=== PATIENT | male | born 2000 | race Caucasian/White ===

== ENCOUNTER 2022-03-08 20:17 | Emergency (ER) | payer OTHER, SELFPAY ==
[2022-03-08 20:18] VITALS: BP 142/80; PULSE 93; RESP 15; TEMP 37.1; O2SAT 98; BMI 35.5
--- NOTE | 2022-03-08 20:34 | CT_ITS ---
STUDY: CT SOFT TISSUE NECK WITH CONTRAST ENHANCEMENT OF 2101 HOURS ON 03/08/2022 REASON FOR EXAM: 21-year-old male with throat pain. Evaluate for peritonsillar abscess. RADIATION DOSAGE (If Supplied By Facility): CTDIvol = ( 19.32 ) mGy, DLP = ( 617.95 ) mGycm TECHNIQUE: The patient was scanned in a multi-detector CT scanner. High resolution transaxial imaging was performed following intravenous administration of IV 75mL [id number]-[id number]. Sagittal and coronal images were reconstructed. Individualized dose optimization techniques were used for this CT. COMPARISON: None. FINDINGS: Moderate enlargement of both tonsils (greater on the left). There are edematous changes in the left tonsil with an area of least attenuation measuring 1.2 cm in diameter that may represent a developing abscess. This abscess is not serous enough to be aspirated. No neck lymphadenopathy. Mild enlargement of the adenoids. Normal salivary glands. Normal vascular structures of the neck. Normal osseous structures without evidence of an osteomyelitis or periostitis. CT/Soft Tissue Neck WITH Contrast IMPRESSION: 1. Moderate enlargement of both tonsils, greater on the left. 2. Edematous changes of the left tonsil area (represented as decreased attenuation), measuring 1.2 cm in diameter, that probably represents a developing abscess. This abscess is not serous enough to be aspirated. 3. Mild enlargement of the adenoids. 4. Normal salivary glands. 5. No lymphadenopathy. 6. Normal vascular structures of the neck. 7. Normal osseous structures without evidence of an osteomyelitis or periostitis. Electronically Signed: Junaid Ruiz MD at 22:32 EDT ,
--- NOTE | 2022-03-08 20:38 | EX.ED.VIS.UR ---
HPI HPI - URI History of Present Illness Chief Complaint: Other, Pain/Inj Informant: patient Onset/Context/Timing Onset: Days Context: Gradual Onset Timing: Continuous Current Severity: Moderate Maximum Severity: Moderate Worsened by: Swallowing Narrative Narrative: 21-year-old male past medical history of depression. States that he has had a sore throat is progressively worsened for the last 4 days to the point remains very difficult to swallow. He is able to swallow fluids. He has had decreased p.o. intake. Denies any swelling of the lymph nodes in his axilla or groin. He does have lymphadenopathy in his neck. Today went to urgent care they were concerned he might have a peritonsillar abscess and sent in the emergency department. Prior similar symptoms: No Recent Illness/Hospitalization: No ROS ROS ED ROS Narrative Sore throat. Review of Systems ROS Unobtainable: Denies due to encephalopathy Constitutional Constitutional ED: Denies fever(s) Eyes Eyes: Denies change in vision ENT ENT ED: Denies ear pain Cardiovascular Cardiovascular: Denies chest pain Respiratory/Chest Respiratory/Chest: Denies dyspnea Gastrointestinal Gastrointestinal: Denies abdominal pain, diarrhea, nausea or vomiting Genitourinary Genitourinary ED: Denies dysuria Musculoskeletal Musculoskeletal: Denies myalgias Integumentary Denies rash Neurologic Neurologic: Denies headache(s) Psychiatric Psychiatric: Denies depression Endocrine Endocrinology: Denies polyuria Hematologic/Lymphatic Hematologic/Lymphatic: Denies easy bruising Allergic/Immunologic Allergic/Immunologic ED: Denies urticaria PFSH PFSH Medical History Anxiety Depression Non-smoker Home Medications amoxicillin-pot clavulanate 1 tab PO BID 10 Days #20 tab 03/08/22 [Rx Last Taken Unknown] hydrocodone-acetaminophen 1 tab PO Q4H PRN 4 Days #14 tab 03/08/22 [Rx Last Taken Unknown] sertraline 50 mg PO DAILY 03/08/22 [History Last Taken Unknown] Allergy/AdvReac Type Severity Reaction Status Date / Time No Known Allergies Allergy Verified 03/08/22 20:21 Social History Smoking Status: Never smoker EXAM Physical Exam Narrative Exam Narrative: 21-year-old male vital signs stable afebrile. Pulse ox 98% on room air no signs hypoxia. H EENT exam TMs normal bilaterally. Posterior pharynx significantly swollen. Both the soft palate and both tonsils. Exudate on the left. Left appears to be more swollen than the right this may be consistent with a peritonsillar abscess. He is able to swallow his own secretions but its quite painful. Neck has bilateral anterior lymphadenopathy. Trachea midline. Lungs clear to auscultation. Heart regular rhythm rate about 90 no murmur. Abdomen soft nontender. There is no axillary or inguinal lymphadenopathy. Skin no rash. Moving all 4 extremities. Neurologically is awake and alert. Const Vital Signs: 03/08/22 20:18 03/08/22 20:25 Temperature 98.8 F Temperature Source Temporal Pulse Rate 93 Respiratory Rate 15 Respiratory Effort Normal Respiratory Pattern Normal Blood Pressure 142/80 H Blood Pressure Mean 100 Pulse Ox 98 Oxygen Delivery Method Room Air Positive well nourished, well developed and obese; Negative for cachectic or contractures General Appearance ED: well developed and NAD; Negative for cachectic, contractures, cyanotic, diaphoretic or pallor Nutritional Appearance: obese; Negative for cachectic HEENT Reports TM's clear and dry mucous membranes normocephalic External Ear: external ears normal External Auditory Canal: EAC's normal Tympanic Membrane ED: Yes TM's clear Mouth ED: Yes dry mucous membranes Mouth: dry mucous membranes Teeth and Gingiva: Negative for caries Throat: tonsils abnormal and posterior oropharynx abnormal; Negative for posterior oropharynx normal Eyes PERRL and EOMs intact bilaterally General Eye ED: Negative for pale conjunctiva or scleral icterus Neck No no lymphadenopathy, supple, no meningeal signs and no JVD General: anterior neck swelling and lymphadenopathy Resp normal respiratory effort and clear to auscultation bilaterally Auscultation: Negative for rales, rhonchi or wheezes Cardio S1 normal heart sound, S2 normal heart sound and no murmurs Rate: regular rate Rhythm: regular rhythm GI non-tender, non-distended and no masses Inspection: Negative for abdominal distention Auscultation: normoactive bowel sounds Palpation: soft; Negative for tender or guarding Back/Spine no CVA tenderness; Negative for normal ROM Extremity normal to inspection and full ROM General Extremety ED: Negative for cyanosis or tenderness General Extremity: Negative for cyanosis Neuro oriented x3 Sensorium / Orientation: alert, oriented to person, oriented to place and oriented to time; Negative for orientation impaired, lethargic or stuporous Motor Exam: strength 5/5 throughout Psych mental status grossly normal Attitude: No agitated Mood & Affect: Negative for depressed, anxious or tearful Skin General Skin Exam: Negative for jaundice or pallor Lesions: no lesions Rashes: no rashes MDM MDM MDM Narrative Medical decision making narrative: 21-year-old male has sore throat with lymphadenopathy that may be secondary strep Vo[place] or possible peritonsillar abscess. CAT scan labs being obtained. Treated with IV fluids. Treated with Toradol and morphine for pain Zofran. Started on IV Unasyn for the sore throat. Repeat exam patient is doing much better. Pain is much improved after the medication. He is received a dose of IV Unasyn. Also received a dose of IV Decadron. I spoke to ear nose and throat Dr. Moody Valencia. We discussed peritonsillar abscess he will see the patient in his office tomorrow. Will be placed on Augmentin twice daily. [place] for pain. And follow-up in the office tomorrow. Lab Data Attestation: I reviewed the patient's lab results. Lab results narrative: CBC shows a white count 11.1. H&H 14 and 45. Platelets 270. Electrolytes show potassium of 3.3 gap of 5 normal BUN and creatinine. Glucose of 93. Rapid strep is negative. CAT scan has soft tissue swelling much more so on the left tonsillar bed and soft palate that is consistent with a peritonsillar abscess. Awaiting formal radiology interpretation. Radiologist agrees. Labs: Laboratory Results - last 24 hr 03/08/22 03/08/22 20:50 20:50 WBC 11.1 H RBC 5.24 Hgb 14.8 Hct 45.3 MCV 86.5 MCH 28.2 MCHC 32.7 RDW Std Deviation 39.2 RDW Coeff of [place] 12.3 Plt Count 270 MPV 10.9 Immature Gran % (Auto) 0.500 Neut % (Auto) 75.7 H Lymph % (Auto) 13.5 L [place] % (Auto) 9.2 Eos % (Auto) 0.8 Baso % (Auto) 0.3 Absolute Neuts (auto) 8.4 H Absolute Lymphs (auto) 1.50 Nucleated RBC % 0 Sodium 138 Potassium 3.3 L Chloride 103 Carbon Dioxide 30.0 Anion Gap 5 BUN 6 L Creatinine 0.78 Estim Creat Clear Calc 169.30 Est GFR (MDRD) Af Amer 161 Est GFR (MDRD) Non-Af 133 BUN/Creatinine Ratio 7.7 L Glucose 93 Calcium 9.5 Radiography Diagnostic Testing: Clinical Impression(s) from Imaging Studies Soft Tissue Neck CT 03/08/22 20:34 IMPRESSION: 1. Moderate enlargement of both tonsils, greater on the left. 2. Edematous changes of the left tonsil area (represented as decreased attenuation), measuring 1.2 cm in diameter, that probably represents a developing abscess. This abscess is not serous enough to be aspirated. 3. Mild enlargement of the adenoids. 4. Normal salivary glands. 5. No lymphadenopathy. 6. Normal vascular structures of the neck. 7. Normal osseous structures without evidence of an osteomyelitis or periostitis. Electronically Signed: Junaid Ruiz MD at 22:32 EDT , Discharge Plan Triage Chief Complaint: Other, Pain/Inj ED Provider: Timmy Martines Dx/Rx/DC Orders Clinical Impression: Abscess, peritonsillar Instructions: ED Peritonsillar Abscess Prescriptions: New amoxicillin-pot clavulanate 875-125 mg tablet 1 tab PO BID 10 Days Qty: 20 RF: 0 hydrocodone-acetaminophen 5-325 mg tablet 1 tab PO Q4H PRN (Reason: pain) 4 Days Qty: 14 RF: 0 No Action sertraline 50 mg tablet 50 mg PO DAILY RF: 0 Primary Care Provider: Phil Burks Referrals: Marco Pandya MD [STAFF PHYSICIAN] - 1 Day (Call the office in the morning to be seen tomorrow morning before noon.) Phil Burks MD [Primary Care Provider] - Activity Restrictions/Additional Instructions: You have a peritonsillar abscess. Warm salt water gargling 5 times a day. Motrin and Tylenol for pain. [place] for more severe pain. The antibiotic Augmentin twice a day till gone. Call the office of the ear nose and throat Dr. Moody Valencia who I spoke to [facility]. He will see in the office tomorrow morning. Plenty of fluids and rest. Disposition Disposition: Home, Self Care
[2022-03-08 21:00] LABS: Absolute Neutrophil Count 8.4 X10^3/uL (2.0-7.7); Basophil# 0.03 X10^3/uL; Basophil% 0.3 % (0-1); Eosinophil# 0.09 X10^3/uL; Eosinophils% 0.8 % (0-5); Hematocrit 45.3 % (40-54); Hemoglobin 14.8 g/dL (13.0-16.5); Lymphocyte % 13.5 % (19-41); Mean Corp Hgb Conc 32.7 g/dL (32-36); Mean Corpuscular Hgb 28.2 pg (27.0-32.0); Mean Corpuscular Volume 86.5 fL (80-94); Mean Platelet Vol. 10.9 fl (6.2-12.0); Monocyte# 1.02 X10^3/uL; Monocyte% 9.2 % (0-10); NRBC Flagged by Analyzer 0 % (0-5); Neutrophil % 75.7 % (47-70); Platelet Count 270 K/mm3 (150-450); RBC Distribution Width CV 12.3 % (11.6-14.6); RBC Distribution Width SD 39.2 fl (35.1-43.9); Red Blood Count 5.24 M/mm3 (4.6-6.2); White Blood Count 11.1 K/mm3 (4.4-11.0)
[2022-03-08] MEDS: 0.9% Normal Saline 1,000 ML 1000 ML IV (21:06)
[2022-03-08] MEDS: Ketorolac 30 MG/ML Syringe IV (21:07)
[2022-03-08] MEDS: morphine 8 MG/ML Syringe IV (21:07)
[2022-03-08] MEDS: Ondansetron 4 MG/2 ML Vial IV (21:07)
[2022-03-08 21:13] LABS: Anion Gap 5 (5-15); BUN 6 mg/dL (7-18); BUN/Creat Ratio 7.7 RATIO (10-20); Calcium,Total 9.5 mg/dL (8.5-10.1); Chloride 103 mmol/L (98-107); Creatinine, Serum 0.78 mg/dL (0.70-1.30); EST Glomerular Filtration Rate 133 mL/min (>60); Est Glom Filt Rate - Afr Amer 161 mL/min (>60); Glucose 93 mg/dL (74-106); Potassium 3.3 mmol/L (3.5-5.1); Sodium Level 138 mmol/L (136-145)
[2022-03-08] MEDS: dexAMETHasone 10 MG/ML Vial IV (22:47)
[2022-03-08 23:32] VITALS: BP 151/81; PULSE 88; RESP 20; TEMP 37.7; O2SAT 94
== END 2022-03-09 00:11 | disposition home or self-care (01) ==
PROVIDERS: Emergency Provider Emergency Medicine; PCP Family Medicine; Visit Provider Emergency Medicine
DX: J36 Peritonsillar abscess (principal); F32.A Depression, unspecified; E66.9 Obesity, unspecified; Z79.899 Other long term (current) drug therapy
CPT/HCPCS: 70491; 80048; 85025; 87880; 96365; 96375; 99282; J7030; Q9967; A4216; J0295; J2405

== ENCOUNTER → 2022-03-11 | Outpatient (CLI) | payer OTHER, SELFPAY | END | disposition home or self-care (01) | LOC: LABSPEC 15:19 | PROVIDERS: PCP Family Medicine; Visit Provider Otolaryngology | DX: J35.01 Chronic tonsillitis (principal) | CPT/HCPCS: 87070 ==